=== PATIENT | male | born 1960 | race Caucasian/White ===

== ENCOUNTER → 2019-02-22 | Outpatient (CLI) | payer OTHER | LOC: CAT 12:33 | DX: Z13.6 Encounter for screening for cardiovascular disorders (principal); I25.10 Atherosclerotic heart disease of native coronary artery without angina pectoris; E78.00 Pure hypercholesterolemia, unspecified ==

== ENCOUNTER 2019-06-12 17:37 | Emergency (ER) | payer BC ==
[~2019-06-12] VITALS: Ht 177.8 cm; Wt 104.3 kg
[2019-06-12] MEDS ORDERED: DICLOFENAC SODI75 MG PO (19:04)
[2019-06-12] MEDS ORDERED: ZYLOPRIM300 MG PO (19:05)
[2019-06-12] MEDS ORDERED: OMEPRAZOLE40 MG PO (19:05)
[2019-06-12] MEDS ORDERED: IRON325 M1 PO (19:06)
[2019-06-12] MEDS ORDERED: LIPITOR 20 MG T20 M1 PO (19:06)
[2019-06-12] MEDS ORDERED: TRANDOLAPRIL4 MG PO (19:07)
[2019-06-12] MEDS ORDERED: INDAPAMIDE2.5 MG PO (19:07)
[2019-06-12] MEDS ORDERED: VASCEPA1 GM PO (19:08)
[2019-06-12] MEDS ORDERED: NORVASC 2.5 MG2.5 M1 PO (19:08)
[2019-06-12] MEDS ORDERED: BYSTOLIC10 MG PO (19:08)
[2019-06-12] MEDS ORDERED: CENTRUM SILVER1 EAC7 PO (19:09)
[2019-06-12] MEDS ORDERED: NATURE MADE PO (19:10)
[2019-06-12] MEDS ORDERED: VITAMIN D32000 UNI1 PO (19:10)
[2019-06-12] MEDS ORDERED: VITAMIN B12 PO (19:11)
[2019-06-12] MEDS ORDERED: CIPRO500 M1 PO (19:12)
[2019-06-12] MEDS ORDERED: ASPIR-LOW81 MG PO (19:12)
[2019-06-12 19:46] LABS: ABSOLUTE NEUTROPHILS 5.3 thou/uL (1.4-8.2); BASOPHILS 1.1 % (0.0-2.0); EOSINOPHILS 4.7 % (0.0-3.0); HEMOGLOBIN 12.4 gm/dL (14.0-18.0); LYMPHOCYTES 14.8 % (24.0-44.0); MCH 31.8 pg (26.0-34.0); MCHC 33.5 g/dL (28.0-37.0); MCV 94.9 fL (80.0-100.0); MONOCYTES 8.6 % (1.0-8.0); PLATELET COUNT 256 thou/uL (150-400); POLYS 70.8 % (36.0-66.0); RBC 3.89 mil/uL (4.50-6.00); RDW 14.1 % (10.5-14.5); WBC 7.5 thou/uL (4.0-11.0)
[2019-06-12 19:52] LABS: CALCIUM 8.5 mg/dL (8.5-10.1); POTASSIUM 3.4 mmol/L (3.5-5.1)
[2019-06-12 20:49] VITALS: BP 141/77
== END 2019-06-12 20:49 | disposition home or self-care (01) ==
LOC: ER 17:37
PROVIDERS: Emergency Medicine
DX: R20.2 Paresthesia of skin (principal); I10 Essential (primary) hypertension

== ENCOUNTER → 2020-08-03 | Outpatient (CLI) | payer BC ==
[~2020-08-03] MED LIST: ASPIR-LOW81 MG PO; BYSTOLIC10 MG PO; CENTRUM SILVER1 EAC7 PO; CIPRO500 M1 PO; DICLOFENAC SODI75 MG PO; INDAPAMIDE2.5 MG PO; IRON325 M1 PO; LIPITOR 20 MG T20 M1 PO; NATURE MADE PO; NORVASC 2.5 MG2.5 M1 PO; OMEPRAZOLE40 MG PO; TRANDOLAPRIL4 MG PO; VASCEPA1 GM PO; VITAMIN B12 PO; VITAMIN D32000 UNI1 PO; ZYLOPRIM300 MG PO
== END ==
LOC: SJCVCIMAG 07:51
PROVIDERS: ATTEND Internal Medicine Cardiovascular Disease
DX: Z01.810 Encounter for preprocedural cardiovascular examination (principal); I44.7 Left bundle-branch block, unspecified; R00.0 Tachycardia, unspecified; Z79.82 Long term (current) use of aspirin; Z79.899 Other long term (current) drug therapy

== ENCOUNTER → 2021-07-29 | Outpatient (CLI) | payer BC | LOC: SJCVCIMAG 07:12 | PROVIDERS: ATTEND Internal Medicine Cardiovascular Disease | DX: I25.10 Atherosclerotic heart disease of native coronary artery without angina pectoris (principal); E78.5 Hyperlipidemia, unspecified ==